=== PATIENT | male | born 1985 | race Caucasian/White ===

== ENCOUNTER 2018-12-09 17:01 | Emergency (ER) | payer MEDICAID ==
[~2018-12-09] VITALS: Ht 170.2 cm; Wt 90.2 kg
[2018-12-09 17:21] VITALS: Ht 170.2 cm; Wt 90.2 kg
[2018-12-09] MEDS ORDERED: KETOROLAC 30 MG INJ IM STA (18:21)
--- NOTE | 2018-12-09 18:30 | ERD ---
ER Documentation Chief Complaint Chief Complaint dizziness and rt upper quadrant pain since yesterday HPI 33-year-old male with no reported past medical surgical history who presents with 2-day complaint of right lower rib cage pain. Patient describes sharp pain to right lower rib cage made worse by coughing. She has had also had subjective fevers, rhinorrhea, and cough over the past 2 weeks. Describes intermittent dizziness. He otherwise denies pain, nausea, vomiting, diarrhea, abdominal pain, urinary symptoms. Denies any recent injury or fall. 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 Denies any on-the-job injuries. He otherwise without complaint. ROS All systems reviewed and are negative except as per history of present illness. Medications Home Meds Active Scripts Ibuprofen* (Motrin*) 600 Mg Tab, 600 MG PO Q6, #30 TAB Prov:EDIN SHEPPARD PA-C 12/09/18 Guaifenesin* (Robitussin*) 100 Mg/5 Ml Syrup, 200 MG PO Q6H PRN for COUGH for 7 Days, ML Prov:EDIN SHEPPARD PA-C 12/09/18 FmHx Family History: No diabetes, No coronary disease, No other Physical Exam Vitals Vital Signs Date Temp Pulse Resp B/P (MAP) Pulse Ox O2 O2 Flow FiO2 Time Delivery Rate 12/09/18 99.5 78 18 144/69 100 17:21 (94) Physical Exam I have reviewed the triage vital signs. Const: Well nourished, well developed, appears stated age Eyes: PERRL, no conjunctival injection HENT: NCAT, Neck supple without meningismus CV: RRR, Warm, well-perfused extremities RESP: CTAB, Unlabored respiratory effort GI: soft, non-tender, non-distended, no masses MSK: No gross deformities appreciated, tenderness to deep palpation to R lower rib cage single point, no bruising evidence of trauma Skin: Warm, dry. No rashes Neuro: grossly non focal Psych: Appropriate mood and affect. Results 24 hrs Current Medications Medications Dose Sig/Sharan Start Time Status Last (Trade) Ordered Route PRN Stop Time Admin Dose Reason Admin Ketorolac 30 mg ONCE STAT 12/09/18 DC 12/09/18 Tromethamine IM 18:21 18:42 (Toradol) 12/09/18 18:23 Silver 1 applic ONCE ONCE 12/09/18 Cancel Sulfadiazine TOP 19:00 (Thermazene 12/09/18 19:01 1% 25 Gm) Procedures/MDM 33-year-old male pt presents with coughing history suggestive of acute bronchitis. >5days of cough, without evidence of PNA and chest x-ray is negative, common cold, or asthma. Unlikely pertussis, sinusitis, or FB irritation/obstruction. ED Course: 1.HR <100 2.RR <24 3.Temperature <38 (100.4) 4.Exam findings not consistent with focal consolidation 5.Age <64yr DISPOSITION PLAN: We discussed follow up with the patient's primary care doctor within 24 to 48 hours. Patient counseled regarding my diagnostic impression and care plan. Prior to discharge all questions answered. Pt agrees with treatment plan and understands strict return precautions. Precautionary instructions provided including instructions to return to the ER if not improving or for any worsening or changing symptoms or concerns. Disclaimer: Inadvertent spelling and grammatical errors are likely due to EHR/dictation software use and do not reflect on the overall quality of patient care. Also, please note that the electronic time recorded on this note does not necessarily reflect the actual time of the patient encounter. Departure Diagnosis: Primary Impression: Cough Condition: Stable EDIN SHEPPARD PA-C Dec 09, 2018 18:30
[2018-12-09] MEDS ORDERED: IBUP-1542 PO (18:49)
[2018-12-09] MEDS ORDERED: GUAI-637 PO (18:49)
[2018-12-09] MEDS ORDERED: SILVER SULFADIAZINE 1% 25 GM CR TOP ONE (19:00)
[2018-12-09 19:25] VITALS: BP 128/72; PULSE 74; RESP 16
== END 2018-12-09 19:25 | disposition home or self-care (01) ==
LOC: FTE 17:01
DX: R05 Cough (principal)
CPT/HCPCS: 71046; 96372; J1885; Z7502